=== PATIENT | female | born 1990 | race Caucasian/White ===

== ENCOUNTER → 2016-08-01 | Outpatient (CLI) | payer BC ==
--- NOTE | 2016-08-01 18:00 | Diagnostic Imaging Report ---
INDICATION: OB ultrasound for anatomical survey. FINDINGS: There is a single live intrauterine fetus. Fetus is transverse with head to maternal right. Fetus is active. Placenta is posterior with no evidence of previa. heart rate of 158 beats per minute. Amniotic fluid index is 17 cm. Cervical length is 3.2 cm. Anatomical survey of the fetus appears normal. Biometric measurements are BPD 4.32 cm, head circumference 16.1 cm, abdominal circumference 14.37 cm, femur length 2.9 cm. Estimated weight of 264 g. IMPRESSION: 19 week 2 day live intrauterine by ultrasound. Sonographic EDC of 12/24/2016. Dictated by: Dictated on workstation # [id number]
== END ==
LOC: RAD 15:25
PROVIDERS: ATTEND Family Medicine
DX: Z36 Encounter for antenatal screening of mother (principal)
CPT/HCPCS: 76805

== ENCOUNTER → 2016-09-20 | Outpatient (CLI) | payer BC | LOC: RAD 13:54 | PROVIDERS: ATTEND Family Medicine | DX: R10.12 Left upper quadrant pain (principal) | CPT/HCPCS: 76770 ==